=== PATIENT | male | born 1970 | race Caucasian/White ===

== ENCOUNTER 2017-03-07 09:59 | Emergency (ER) | payer MEDICAID ==
[~2017-03-07] VITALS: Ht 175.3 cm; Wt 66.7 kg
[~2017-03-07 09:59] MED LIST: ALBUTEROL0.09 MG/A2 IH; AMOXICOT500 MG PO; BACTROBAN2% TP; CIPRO 500MG TA500 MG PO; CYCLOBENZAPRINE10 M1 PO; DULERA1 AR1 IH; ELIMITE 5%60 GM/TUB1 TP; ELIMITE 5%60 GM/TUBE TP; FLEXERIL10 M1 PO; GABAPENTIN 600600 MG PO; HYDROCODONE1 TABLET PO; HYDROCORTI30 GM/TUB3 TP; HYDROXYZINE HCL25 M1 PO; IBU800 M1 PO; IBUPROFEN200 MG OR; KEFLEX 500MG.500 MG PO; LORTAB 5/500 501 TAB PO; LORTAB 7.5/3251 TAB PO; MEDROL 4MG. DOSE4 MG PO; MELOXICAM15 MG PO; MOTRIN 600MG.600 MG PO; PEN-VK500 MG PO; PREDNISONE 20MG20 MG PO; SEPTRA DS 800 M1 TAB PO; TRAMADOL 50MG T50 MG PO; ULTRAM 50 MG TA50 MG PO; XANAX 1MG TABLET1 MG PO
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
--- OUTSIDE RECORDS SUMMARY | 2017-03-07 10:02 | External Medical Summary Rpt | CCD ---
Author Author , FAWN AUGUSTINE Address Unknown Phone [email or web address] Care Team Providers Care Paralegals Name Role Phone [facility] Unavailable Unavailable & INTER, [facility] Unavailable Unavailable SERVICE, [facility] Unavailable Unavailable HOSPITA, [facility] Unavailable Unavailable INC, [facility] Unavailable Unavailable HOSPITAL P, [facility], [facility]available Unavailable [facility] Unavailable Unavailable IM[facility]ING [facility], [facility], Unavailable Unavailable [facility] Unavailable [facility]available [facility], Unavailable Unavailable [facility] SCALF LEI, SCALF LEI Unavailable Unavailable Purpose Continuity of Care Document - 09-12-2013 through 2016 Problems Code Diagnosis DOS Provider Status [id number] PAIN IN 09-28-2016 [place] [facility] M7989 OTHER 09-28-2016 [place] SPECIFIED MEDICAL SOFT TISSUE IMAGING ASS DISORDERS [id number] SUPERFICIAL 09-28-2016 [place] FB RT RING MEDICAL FINGER IMAGING ASS INITIAL [id number] PUNCTURE 09-18-2016 [facility] W/FB RT PHYSICIANS RING FINGER GROUP NO DAMAGE NAIL INIT B169 ACUTE 09-09-2016 [facility] 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 L0390 CELLULITIS 09-09-2016 [facility] UNSPECIFIED PHYSICIANS GROUP N529 MALE 09-09-2016 [facility] ERECTILE PHYSICIANS DYSFUNCTION GROUP UNSPECIFIED B86 SCABIES 03-29-2016 RON[facility] TREVINO [id number] PAIN IN 03-29-2016 [place] [facility] U3229BH UNSPECIFIED 03-29-2016 [place] INJURY LT MEDICAL WRIST HAND IMAGING ASS FINGERS INITIAL Z24925 DECREASED 12-22-2015 [facility] CELL COUNT UNSPECIFIED M549 DORSALGIA 12-22-2015 [facility] UNSPECIFIED AMBULANCE SERVICE R7989 OTHER SPEC 12-22-2015 [facility] ABNORMAL [facility], FINDINGS PLLC BLOOD CHEMISTRY T40615S STRAIN 12-22-2015 [facility] MUS[facility], [facility] & [facility]C TENDON LOW BACK INITIAL K3545GF CONTUSION 11-17-2015 [facility] OTHER PART PHYSICIANS, OF HEAD PLLC INITIAL ENCOUNTER I1514VF UNSPECIFIED 11-17-2015 [place] INJURY OF MEDICAL FACE IMAGING ASS INITIAL ENCOUNTER Z886YPR UNSPECIFIED 11-17-2015 [place] INJURY OF MEDICAL NECK IMAGING ASS INITIAL ENCOUNTER R945 ABNORMAL 06-26-2015 [facility] RESULTS OF [facility] LIVER HOSPITA FUNCTION STUDIES L089 LOCAL INF 06-24-2015 [facility] THE SKIN & SUBCUTANEOU S TISSUE UNS L118 OTHER 06-24-2015 [facility] SPECIFIED ACANTHOLYTI C DISORDERS L720 EPIDERMAL 06-24-2015 [facility] CYST 74349 CHEST PAIN 09-24-2014 [place] UNSPECIFIED [facility]ICAL IMAGING ASS 39764 OTHER CHEST 09-24-2014 [facility] P 7862 COUGH 07-24-2014 [facility] 1330 SCABIES 07-23-2014 [facility] P 56261 CONCUSSION 04-04-2014 [facility] WITH LOC OF [facility] 30 [facility] P OR LESS 9221 CONTUSION 04-04-2014 [facility] P E8490 PLACE OF 04-04-2014 [facility] OCCURRENCE, [facility] P E8859 FALL FROM 04-04-2014 [facility] P TRIPPING OR STUMBLING 7231 CERVICALGIA 09-25-2013 [facility] INC V571 OTHER 09-25-2013 [facility] THERAPY INC 496 CHRONIC 09-12-2013 [facility], [facility] INC OBSTRUCTION NEC B86 SCABIES S00.83XA [...] 01 03 60 30 00 HO Ac AZ 76 -3 -0 .0 00 ME ti [...] 07 WN ZA 93 17 17 64 AZ 2 33 PH IN AR E MA 10 CY MG OF TA CY BL NT ET HI AN A AL 00 12 02 60 30 00 HO Ac AZ 78 -3 -0 .0 00 ME ti [...] End Date Code Location Performer Type Date [facility] [place] - 7 7 [facility] 6 6 [facility] 6 6 [facility] 5 5 [facility] 5 5 [facility] - 4 4 [facility] [place] - 4 4 [facility]
--- OUTSIDE RECORDS SUMMARY | 2017-03-07 10:03 | External Medical Summary Rpt | CCD ---
Author Author , FAWN AUGUSTINE Address Unknown Phone [email or web address] Care Team Providers Care Typewriter Operator Automatic Name Role Phone [facility] Unavailable Unavailable & INTER, [facility] Unavailable Unavailable SERVICE, [facility] Unavailable Unavailable HOSPITA, [facility] Unavailable Unavailable INC, [facility] Unavailable Unavailable HOSPITAL P, [facility], Unavailable Unavailable [facility] Unavailable Unavailable IMAGING ASS, [facility], Unavailable Unavailable [facility] [facility] Unavailable Unavailable [facility], Unavailable Unavailable PLLC, [facility] SCALF LEI, SCALF LEI Unavailable Unavailable Purpose Continuity of Care Document - 09-12-2013 through 2016 Problems Code Diagnosis DOS Provider Status [id number] PAIN IN 09-28-2016 [place] [facility] M7989 OTHER 09-28-2016 [place] SPECIFIED MEDICAL SOFT TISSUE IMAGING ASS DISORDERS Q90275M SUPERFICIAL 09-28-2016 [place] FB RT RING MEDICAL FINGER IMAGING ASS INITIAL J79115X PUNCTURE 09-18-2016 [facility] W/FB RT PHYSICIANS RING FINGER GROUP NO DAMAGE NAIL INIT B169 ACUTE 09-09-2016 [facility] 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 UNSPECIFIED AMBULANCE SERVICE R7989 OTHER SPEC 12-22-2015 [facility], FINDINGS PLLC BLOOD CHEMISTRY Z22127B STRAIN 12-22-2015 [facility] MUS[facility], [facility] & [facility] TENDON LOW BACK INITIAL J6593AI CONTUSION 11-17-2015 [facility] OTHER PART PHYSICIANS, OF HEAD PLLC INITIAL ENCOUNTER C1197ZT UNSPECIFIED 11-17-2015 [place] INJURY OF MEDICAL FACE IMAGING ASS INITIAL ENCOUNTER N423GGJ UNSPECIFIED 11-17-2015 [place] INJURY OF MEDICAL NECK IMAGING ASS INITIAL ENCOUNTER R945 ABNORMAL 06-26-2015 [place] [facility] OF [facility] LIVER HOSPITA FUNCTION STUDIES L089 LOCAL INF 06-24-2015 [facility] THE SKIN & SUBCUTANEOU S TISSUE UNS L118 OTHER 06-24-2015 [facility] SPECIFIED ACANTHOLYTI C DISORDERS L720 EPIDERMAL 06-24-2015 [facility] CYST 74898 CHEST PAIN 09-24-2014 [place] UNSPECIFIED MEDICAL IMAGING ASS 70365 OTHER CHEST 09-24-2014 [facility] P 7862 COUGH 07-24-2014 [facility] 1330 SCABIES 07-23-2014 [facility] P 19424 CONCUSSION 04-04-2014 [place] WITH LOC OF [address] P OR LESS 9221 CONTUSION 04-04-2014 [place] OF [facility] P E8490 PLACE OF 04-04-2014 [place] OCCURRENCE, [facility] P E8859 FALL FROM 04-04-2014 [facility] P TRIPPING OR STUMBLING 7231 CERVICALGIA 09-25-2013 [facility] INC V571 OTHER 09-25-2013 [facility] THERAPY INC 496 CHRONIC 09-12-2013 [facility] INC OBSTRUCTION NEC Medications Na ND Rx Da Fi Fi [...] CY NT HI AN A GA 68 09 10 90 30 00 HO Ac [...] CY NT HI AN A GA 68 08 09 90 30 00 HO Ac [...] BL ET CY NT HI AN A OX 00 07 08 60 30 00 HO Ac AZ 78 -1 -0 .0 00 ME ti EP 12 2- 4- 00 04 TO ve AM 80 20 20 02 WN 90 17 17 36 10 1 43 PH AR MG MA CY CA PS OF UL E CY NT HI AN A PE 00 06 06 60 1 00 HO Ac RM 47 -0 -3 .0 00 ME ti ET 20 2- 0- 00 06 TO ve HR 24 20 20 07 WN IN 26 17 17 73 0 04 PH 5% AR MA CR CY EA M OF CY NT HI AN A MU 68 [...] UL CY E NT HI AN A GA 68 04 [...] ET CY NT HI AN A GA 03 04 90 30 00 HO Ac [...] ET CY NT HI AN A GA 02 03 90 30 00 HO Ac [...] 01 03 60 30 00 HO Ac IA 76 -3 -0 .0 00 ME ti AZ 23 0- 3- 00 04 TO ve OL 72 20 20 02 WN AM 10 17 17 12 1 4 38 PH AR MG MA CY TA BL OF ET CY NT HI AN A GA 01 02 90 30 00 HO Ac [...] 07 WN ZA 93 17 17 64 IA 2 33 PH IN AR E MA 10 CY MG OF TA CY BL NT ET HI AN A AL 00 12 02 60 30 00 HO Ac IA 78 -3 -0 .0 00 ME ti AZ 11 0- 3- 00 04 TO ve OL 07 20 20 03 WN AM 90 16 17 96 1 5 22 PH AR MG MA CY TA BL ET GA 68 12 01 90 30 00 HO Ac BA 00 -2 -2 .0 00 ME ti PE 10 6- 7- 00 06 TO ve NT 00 20 20 07 WN IN 60 16 17 62 3 76 PH 60 AR 0 MA MG CY TA OF BL ET CY NT HI AN A ME 68 12 01 30 30 00 HO Ac LO 38 -2 -2 .0 00 ME ti XI 20 6- 7- 00 06 TO ve CA 05 20 20 07 WN M 10 16 17 41 15 5 66 PH AR MG MA CY TA BL OF ET CY NT HI AN A HY [...] End Date Code Location Performer Type Date [facility] [place] [facility] 7 [facility] 6 [facility] 5 5 [facility] - 5 5 [facility] 4 4 [facility] 4 4 [facility]
--- OUTSIDE RECORDS SUMMARY | 2017-03-07 10:03 | External Medical Summary Rpt | CCD ---
Author Author , FAWN AUGUSTINE Address Unknown Phone [email or web address] Care Team Providers Care Regional Administrative Assistant Name Role Phone [facility] Unavailable Unavailable & INTER, [facility]available Unavailable SERVICE, [facility] Unavailable Unavailable HOSPITA, [facility] Unavailable Unavailable INC, [facility] Unavailable Unavailable HOSPITAL P, [facility], Unavailable Unavailable [facility] Unavailable Unavailable IMAGING [facility], [facility], Unavailable Unavailable [facility] [facility] Unavailable Unavailable [facility], Unavailable Unavailable PLLC, [facility] SCALF LEI, SCAL[facility] LEI Unavailable Unavailable Purpose Continuity of Care Document - 09-12-2013 through 2016 Problems Code Diagnosis DOS Provider Status [id number] PAIN IN 09-28-2016 [place] [facility] M7989 OTHER 09-28-2016 [place] SPECIFIED MEDICAL SOFT TISSUE IMAGING ASS DISORDERS [id number] SUPERFICIAL 09-28-2016 [place] FB RT RING MEDICAL FINGER IMAGING ASS INITIAL D17676J PUNCTURE 09-18-2016 [facility] W/FB RT PHYSICIANS RING FINGER GROUP NO DAMAGE NAIL INIT B169 ACUTE 09-09-2016 [facility] 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 L0390 CELLULITIS 09-09-2016 [facility] UNSPECIFIED PHYSICIANS GROUP N529 MALE 09-09-2016 [facility] ERECTILE PHYSICIANS DYSFUNCTION GROUP UNSPECIFIED B86 SCABIES 03-29-2016 [facility]ON[facility] TREVINO R26146 PAIN IN 03-29-2016 [place] [facility] [id number] UNSPECIFIED 03-29-2016 [place] INJURY LT MEDICAL WRIST HAND IMAGING ASS FINGERS INITIAL C28726 DECREASED 12-22-2015 [facility] CELL COUNT UNSPECIFIED M549 DORSALGIA 12-22-2015 [facility] UNSPECIFIED AMBULANCE SERVICE R7989 OTHER SPEC 12-22-2015 [facility], FINDINGS [facility]C BLOOD CHEMISTRY M17687H STRAIN 12-22-2015 [facility] TENDON LOW BACK INITIAL Q6570FD CONTUSION 11-17-2015 [facility] OTHER PART PHYSICIANS, OF HEAD PLLC INITIAL ENCOUNTER J2101VY UNSPECIFIED 11-17-2015 [place] INJURY OF MEDICAL FACE IMAGING ASS INITIAL ENCOUNTER [id number] UNSPECIFIED 11-17-2015 [place] INJURY OF MEDICAL NECK IMAGING ASS INITIAL ENCOUNTER R945 ABNORMAL 06-26-2015 [place] RESULTS OF [facility] LIVER HOSPITA FUNCTION STUDIES L089 LOCAL INF 06-24-2015 [facility] THE SKIN & SUBCUTANEOU S TISSUE UNS L118 OTHER 06-24-2015 [facility] SPECIFIED ACANTHOLYTI C DISORDERS L720 EPIDERMAL 06-24-2015 [facility] CYST 43587 CHEST PAIN 09-24-2014 [place] [facility] 21061 OTHER CHEST 09-24-2014 [facility] P 7862 COUGH 07-24-2014 [facility] 1330 SCABIES 07-23-2014 [facility] P 32585 CONCUSSION 04-04-2014 [facility] WITH LOC OF [address] P OR LESS 9221 CONTUSION 04-04-2014 [facility] OF [facility] P [id number] PLACE OF 04-04-2014 [facility] OCCURRENCE, [facility] P E8859 FALL FROM 04-04-2014 [facility] P TRIPPING OR STUMBLING 7231 CERVICALGIA 09-25-2013 [facility] V571 OTHER 09-25-2013 [facility] 496 CHRONIC 09-12-2013 [facility] OBSTRUCTION NEC Medications Na ND [...] 01 03 60 30 00 HO Ac MI 76 -3 -0 .0 00 ME ti [...] 07 WN ZA 93 17 17 64 MI 2 33 PH IN AR E MA 10 CY MG OF TA CY BL NT ET HI AN A AL 00 12 02 60 30 00 HO Ac MI 78 -3 -0 .0 00 ME ti [...] End Date Code Location Performer Type Date [facility] [place] [place] 4 4 [facility] [place] [address] [facility]
--- OUTSIDE RECORDS SUMMARY | 2017-03-07 10:04 | External Medical Summary Rpt ---
Author Author FA[employer] Arana, FAWN Arana Organization [employer] Address Unknown Phone Unavailable
--- OUTSIDE RECORDS SUMMARY | 2017-03-07 10:04 | External Medical Summary Rpt | CCD ---
Demographics Preferred Language Mongolian Marital Status Unknown Jew Affiliation Unknown Race Unknown Ethnic Group Unknown Author Author , FAWN AUGUSTINE Address Unknown Phone Immunization No patient found.
--- OUTSIDE RECORDS SUMMARY | 2017-03-07 10:04 | External Medical Summary Rpt | CCD ---
Demographics Preferred Language Portuguese Marital Status Unknown Congregation Affiliation Unknown Race Unknown Ethnic Group Unknown Author Author , FAWN AUGUSTINE Address Unknown Phone Immunization No patient found.
[2017-03-07] MEDS ORDERED: ELIMITE 5%60 GM/TUB1 TP (11:18)
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
[2017-03-07 11:22] VITALS: BP 136/80
== END 2017-03-07 11:29 | disposition home or self-care (01) ==
LOC: UTC 09:59
DX: B86 Scabies (principal); J44.9 Chronic obstructive pulmonary disease, unspecified; F17.210 Nicotine dependence, cigarettes, uncomplicated